=== PATIENT | male | born 1965 | race Caucasian/White ===

== ENCOUNTER 2023-09-23 15:07 | Emergency (ER) | payer BC ==
[2023-09-23] MEDS: Cephalexin 250 MG Cap PO ONE (16:21)
[2023-09-23] MEDS: Diphtheria,Pertussis(Acell),Tetanus Vaccine 0.5 ML Syringe IM ONE (16:22)
[2023-09-23] MEDS: Bacitracin Oint 1 GM U/D Packet TOP ONE (16:22)
== END 2023-09-23 16:45 | disposition home or self-care (01) ==
LOC: JP.ED 15:07
DX: S42.035A Nondisplaced fracture of lateral end of left clavicle, initial encounter for closed fracture (principal); S81.802A Unspecified open wound, left lower leg, initial encounter; S40.012A Contusion of left shoulder, initial encounter; Z23 Encounter for immunization; Z79.899 Other long term (current) drug therapy; W18.39XA Other fall on same level, initial encounter; Z86.16 Personal history of COVID-19
CPT/HCPCS: 73030; 90471; 90715; 99283; A9270